=== PATIENT | male | born 1950 | race Caucasian/White ===

== ENCOUNTER 2019-05-07 07:00 | Inpatient (IN) | payer MEDICARE, OTHER ==
[~2019-05-07] VITALS: Ht 188 cm; Wt 109.2 kg
[~2019-05-07 07:00] MED LIST: UNKNOWN DIABETIC MED
[2019-05-07 08:49] LABS: INR 1.09 (0.9-1.15); Partial Thromboplastin Time 29.9 sec (23.64-32.05)
[2019-05-07 08:50] LABS: Albumin 3.4 g/dL (3.4-5.0); Calcium 8.8 mg/dL (8.5-10.1); Potassium 3.6 mmol/L (3.5-5.1)
[2019-05-07 08:55] LABS: BUN/Creatinine Ratio 10.1; Bilirubin, Total 0.7 mg/dL (0.2-1.0); Total Protein 8.7 g/dL (6.4-8.2)
[2019-05-07] MEDS ORDERED: SODIUM CHLORIDE 0.9% 1,000 ML IV ONE (09:40)
[2019-05-07] MEDS ORDERED: SODIUM CHLORIDE 0.9% 1,000 ML IVB ONE (09:40)
[2019-05-07] MEDS ORDERED: ALBUTEROL SULF 2.5 MG/0.5ML(0.5%) NEB SOLN NEB ONE (09:45)
[2019-05-07] MEDS ORDERED: IPRATROPIUM BROM 0.5 MG/2.5ML INH SOL NEB ONE (09:45)
[2019-05-07] MEDS ORDERED: methylPREDNISolone SOD SUCC 125 MG/2 ML VL IV ONE (09:45)
[2019-05-07 10:23] LABS: Magnesium 2.3 mg/dL (1.6-2.6)
[2019-05-07 13:26] LABS: Basophils # (auto) 0 10 ^3/uL (0-0.2); Basophils % (auto) 0.2 % (0.0-2.0); Eosinophils # (auto) 0 10 ^3/uL (0-0.8); Eosinophils % (auto) 0.1 % (0.0-7.0); Hematocrit 47.3 % (41.0-53.0); Hemoglobin 16.1 g/dL (13.5-17.5); Lymphocytes # (auto) 0.5 10 ^3/uL (0.4-5.4); Lymphocytes % (auto) 5.4 % (10.0-50.0); Mean Corpuscular Hemoglobin 32.3 pg (28.0-32.0); Mean Corpuscular Hgb Conc. 34.1 g/dL (32.0-36.0); Mean Corpuscular Volume 94.7 fL (80.0-100.0); Monocytes # (auto) 0.3 10 ^3/uL (0-1.3); Neutrophils # (auto) 8.1 10 ^3/uL (1.6-8.6); Neutrophils % (auto) 91.3 % (37.0-80.0); Platelet Count (auto) 162 10^3/uL (140-450); Red Cell Distribution Width 13.6 % (11.8-14.3); White Blood Cell 8.9 10^3/uL (4.4-10.8)
[2019-05-07] MEDS ORDERED: ACETAMINOPHEN 500 MG TAB PO PRN (14:30)
[2019-05-07] MEDS ORDERED: NITROGLYCERIN 0.4 MG SL TAB SL PRN (14:30)
[2019-05-07] MEDS ORDERED: MORPHINE SULF INJ 2 MG/ML SYRINGE 1ML IV PRN (14:30)
[2019-05-07] MEDS: SODIUM CHLORIDE 0.9% 1,000 ML IV SCH ×2 (14:54→15:58)
--- NOTE | 2019-05-07 15:03 | NUR ---
Telemetry admit from ER RADHA MORALES admitted to Telemetry unit. Patient oriented to Nathalia Shelton, primary RN, unit, room, bed, and unit policies regarding patient care and visiting hours. Patient now on continuous telemetry monitoring, tele box #8 and telemetry reading on arrival to unit is SR 80 bpm. Patient placed on bedside oxygen at 4L NC and weighed by bed scale and encouraged to call if they need anything. Bed locked in the lowest position. Bed rails up x2. Call light in reach.
[2019-05-07 15:06] VITALS: BP 153/54
--- NOTE | 2019-05-07 16:00 | NUR ---
RAPID FLU AND URINE OBTAINED AND SENT TO LAB.
[2019-05-07 17:00] VITALS: BP 124/75
--- NOTE | 2019-05-07 17:34 | NUR ---
JIG MILL OPERATOR NOTIFIED PIPER SIMONS NOTIFIED THAT PATIENT CURRENTLY HAS SUICIDAL THOUGHTS AND HISTORY OF SUICIDE ATTEMPTS. NEW ORDER RECEIVED FOR TELE PSYCH CONSULT TOMORROW. ORDER READ BACK AND VERIFIED. ENGINEERING TEST SPECIALIST AWARE AND WORKING ON OBTAINING A SITTER FOR SAFETY. PATIENT DENIES AN ACTIVE PLAN OR CURRENT ATTEMPTS OF HARMING SELF. PATIENT STATES, "I'VE HAD SUICIDAL THOUGHTS ALL OF MY LIFE. I AM MANIC DEPRESSIVE AND DO NOT TAKE MY MEDICATION. I DONT HAVE ANY PLANS TO HURT MYSELF."
[2019-05-07 17:58] LABS: Urine Bacteria FEW /hpf (None Seen); Urine Blood Negative /uL (Negative); Urine Mucus FEW (None Seen); Urine Specific Gravity 1.029 (1.001-1.035); Urine WBC 2 /hpf (0 - 3)
[2019-05-07] MEDS ORDERED: IOHEXOL 300 MG/ML 100ML BOTTLE IJ ONE (18:09)
--- NOTE | 2019-05-07 19:00 | NUR ---
CLOSING NOTE Patient is awake and alert. No S/S of distress/SOB or pain. Bed locked in the lowest position. Bed rails up x2. Call light in reach. Sitter for safety at the bedside. Endorsed care to english instructor RN.
--- NOTE | 2019-05-07 19:40 | NUR ---
Opening Shift Note Assumed care of patient, resting in bed with breaths even and unlabored. No S/S of distress/SOB or pain noted. Instructed on POC and to call for assist PRN. Sitter at the bedside. Bed is in lowest locked position with bed rails up x2 and call light is within reach of the patient.
--- NOTE | 2019-05-07 21:08 | NUR ---
Hospitalist paged: Paged hospitalist to report CT abdomen/pelvis findings. Waiting for call back.
--- NOTE | 2019-05-07 21:08 | NUR ---
Hospitalist benoit: Patient having persistent complaints of having a tooth ache that is now a 12/08 with no relief after receiving morphine. Paged hospitalist at this time to notify of patients pain. Addendum: 05/07/19 at 2115 by Laury Claudio RN RN Wrong patient.
--- NOTE | 2019-05-07 21:14 | NUR ---
Hospitalist called back: Hospitalist Aravind called back. New orders received. To place orders. Addendum: 05/07/19 at 2120 by Laury Claudio RN RN MD Yates ordered a surgical consult. Addendum: 05/07/19 at 2124 by Laury Claudio RN RN Updated regarding patients history and CT results
[2019-05-07] MEDS: IPRATROPIUM BROM 0.5 MG/2.5ML INH SOL NEB PRN (21:38)
[2019-05-07] MEDS: ALBUTEROL SULF 2.5 MG/0.5ML(0.5%) NEB SOLN NEB PRN (21:38)
[2019-05-07 22:00] VITALS: BP 102/51
[2019-05-07] MEDS: metroNIDAZOLE 500MG/100ML 100 ML IV SCH (22:29)
--- NOTE | 2019-05-07 22:41 | NUR ---
Patients pain resolved: Patient states they have 0 tooth ache pain. Addendum: 05/07/19 at 2242 by Laury Claudio RN RN wrong patient.
[2019-05-07] MEDS: ONDANSETRON HCL 4 MG/2 ML VIAL IV PRN (23:40)
[2019-05-07] MEDS: MORPHINE SULF INJ 2 MG/ML SYRINGE 1ML IV PRN (23:40)
--- NOTE | 2019-05-08 01:08 | NUR ---
Hospitalist paged: Paged hospitalist, patient having persistent cough and requesting cough medication. Waiting for call back.
--- NOTE | 2019-05-08 01:12 | NUR ---
Hospitalist called back: Hospitalist Aravind called back. Updated about patient persistent cough. New orders received. To place orders.
[2019-05-08] MEDS: guaiFENesin-DM 100/10mg/5ml SYR PO PRN ×2 (01:24→11:14)
[2019-05-08 01:35] VITALS: BP 113/68
[2019-05-08] MEDS: ALBUTEROL SULF 2.5 MG/0.5ML(0.5%) NEB SOLN NEB PRN ×2 (03:28→22:50)
[2019-05-08] MEDS: IPRATROPIUM BROM 0.5 MG/2.5ML INH SOL NEB PRN ×2 (03:28→22:50)
--- NOTE | 2019-05-08 04:25 | NUR ---
Called and set up tele psyche: Tele psyche levers lace machine operator in room. Called to place tele psyche for consult to be done.
--- NOTE | 2019-05-08 05:10 | NUR ---
Spoke with Psychiatrist: Psychiatrist stated that "Patient was asleep. Let the patient sleep and call back later when patient is awake." Will call back later when patient is awake.
[2019-05-08 05:17] VITALS: BP 104/57
[2019-05-08] MEDS: metroNIDAZOLE 500MG/100ML 100 ML IV SCH ×3 (05:32→22:00)
[2019-05-08 06:34] LABS: Basophils # (auto) 0 10 ^3/uL (0-0.2); Eosinophils # (auto) 0 10 ^3/uL (0-0.8); Hematocrit 40.9 % (41.0-53.0); Hemoglobin 14.3 g/dL (13.5-17.5); Lymphocytes # (auto) 0.8 10 ^3/uL (0.4-5.4); Lymphocytes % (auto) 7.6 % (10.0-50.0); Mean Corpuscular Hemoglobin 33.1 pg (28.0-32.0); Mean Corpuscular Hgb Conc. 34.9 g/dL (32.0-36.0); Mean Corpuscular Volume 94.9 fL (80.0-100.0); Monocytes # (auto) 1.3 10 ^3/uL (0-1.3); Monocytes % (auto) 12.2 % (0.0-12.0); Neutrophils # (auto) 8.7 10 ^3/uL (1.6-8.6); Neutrophils % (auto) 80.2 % (37.0-80.0); Platelet Count (auto) 169 10^3/uL (140-450); Red Blood Cells 4.31 10^6/uL (4.5-5.90); Red Cell Distribution Width 13.7 % (11.8-14.3); White Blood Cell 10.8 10^3/uL (4.4-10.8)
[2019-05-08 06:50] LABS: Potassium 4.2 mmol/L (3.5-5.1)
--- NOTE | 2019-05-08 06:55 | NUR ---
Respiratory note: PRN MED NEB TX NOT INDICATED AT THIS TIME. HR 67, RR 16, SPO2 97% ON RA, BS CLEAR/DIMINISHED. NO SIGNS OR SYMPTOMS OF RESPIRATORY DISTRESS NOTED AT THIS TIME. PT INFORMED TO HIT CALL BUTTON IF FEELING SOB OR WHEEZING.SITTER AT BEDSIDE.
[2019-05-08 07:09] LABS: Albumin 2.8 g/dL (3.4-5.0); BUN/Creatinine Ratio 20.9; Bilirubin, Total 0.3 mg/dL (0.2-1.0); Calcium 8.4 mg/dL (8.5-10.1)
--- NOTE | 2019-05-08 07:18 | NUR ---
Opening Shift Note Assumed care of patient, awake and alert, sitter at bedside. No S/S of distress/SOB or pain. Instructed on POC and to call for assist PRN, will continue to monitor for changes Q1hr and PRN.
[2019-05-08] MEDS: FAMOTIDINE 20 MG TAB PO SCH (08:32)
[2019-05-08] MEDS: MORPHINE SULF INJ 2 MG/ML SYRINGE 1ML IV PRN ×2 (08:32→22:01)
[2019-05-08 09:00] VITALS: BP 109/68
[2019-05-08] MEDS ORDERED: levoFLOXacin 500MG 100 ML IV SCH (10:00)
--- NOTE | 2019-05-08 11:04 | NUR ---
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 Bedside nurse took photograph of patient's wound upon admission for reference. Patient is 68 years old male admitted for Diarrhea. Patient with history of PE, Crohn's disease, DM,colostomy placement and subsequent reversal. Patient is resting in bed in Rm. 238. Patient is awake, alert and oriented. Patient is in no stated pain at this time. Nurse aide at bedside reported that patient is ambulatory to bathroom and able to turn and reposition self. His Jabari score is 16. Patient's Rt foot noted with missing Rt great toe and Rt 3rd toe. There's 0.5x0.6cm intact scabbed wound to medial Rt 2nd toe,td wound is yellow hyperkeratotic ring, no drainage or odor noted,left open to air. patient's L foot noted with missing L great toe and L 2nd toe. There's 8x0.3x0.8cm fissure/open calloused wound to L medial foot that bifurcate at plantar aspect of L foot. Wound is red with yellow hyperkeratotic skin. Scant serous drainage noted with mild odor noted. Patient reported that he has had the L foot wound for "two and half years". he added that a year ago he's seeing wound care at [facility] and it stopped due to insurance. Cleansed patient's Lt medial foot wound with wound cleanser, patted dry with gauze, applied Thera honey gel to open wound bed area, covered with layer of 4x4's gauze, wrapped with Kerlix and secured with tape. No pressure injury noted, however mild erythema, skin irritation noted on patient's sacral,buttocks and perineum due to diarrhea; applied Barrier cream as preventative. Patient educated in skin/wound care, encourage to apply the barrier cream to sacral, buttock perineum after using the bathroom. Patient tolerated well, and verbalized understanding. Nurse aide at bedside. RECOMMENDATION: Nursing to continue with BID/PRN cleaning and application of Barrier cream to sacral,buttocks and perineum as preventative; Daily/PRN Dressing change to Lt medial foot wound per MD order, Dietary consult for wound,Podiatry consult, continue monitoring by wound care while patient is hospitalized. Addendum: 05/08/19 at 1614 by Lorna Hodge RN Amended: Links added.
[2019-05-08] MEDS: SODIUM CHLORIDE 0.9% 1,000 ML IV SCH ×2 (11:14→20:54)
[2019-05-08 13:00] VITALS: BP 126/56
--- NOTE | 2019-05-08 13:11 | NUR ---
Nutrition Assessment Notes Please refer to link for full assessment notes. Est energy needs: 9928-8895 kcals (23-25 kcal/kgBW) Est protein needs: 109-149 gms/day (1.1-1.5 gm/kgBW) d/t wounds Will continue to monitor and reassess prn. Addendum: 05/08/19 at [address] Amended: Links added.
[2019-05-08] MEDS ORDERED: GASTROGRAFIN 120 ML SOL ONE (13:35)
[2019-05-08 17:00] VITALS: BP 134/80
--- NOTE | 2019-05-08 19:30 | NUR ---
Opening Shift Note Assumed care of patient, awake and alert Oriented x4. No S/S of distress/SOB noted. Instructed on POC and to call for assist PRN. Sitter is at the bedside. Bed is in lowest locked position with bed rails up x2 and call light is within reach of the patient.
--- NOTE | 2019-05-08 19:45 | NUR ---
Patient agitated, Open shift note.: PATIENT STANDING AT THE EDGE OF THE BED AGITATED STATING " I have to pee! I have to strain to get the urine all out!" EDUCATED THE PATIENT NOT TO STRAIN AND THAT PATIENT HAS A ARNETT CATHETER THAT IS DRAINING BLADDER AT ALL TIMES. PATIENT YELLED "Dont tell me what to do! Im not dumb! Im old enough to be your grandpa! Get out of here! I know what Im doing!" EDUCATED THAT PATIENT ABOUT ARNETT CATHETER AGAIN AND NOT TO STRAIN IT COULD HARM THE PATIENT. PATIENT CONTINUED TO BE AGITATED. ARNETT IS PATENT AND DRAINING TO GRAVITY. PATIENT VERBALIZED NO PAIN. BED IS IN LOWEST LOCKED POSITION WITH BED ALARM ARMED. CALL LIGHT IS WITHIN REACH. Addendum: 05/08/19 at 2120 by Laury Claudio RN RN WRONG PATIENT.
[2019-05-08 22:00] VITALS: BP 123/75
--- NOTE | 2019-05-08 22:00 | NUR ---
Tele psyche not available at this time: Tele psyche in use for another patient at this time. Will wait for availability to set up telemetry psyche for patient. Addendum: 05/09/19 at 0124 by Laury Claudio RN RN error: meant tele psyche
[2019-05-08] MEDS: ONDANSETRON HCL 4 MG/2 ML VIAL IV PRN (22:01)
--- NOTE | 2019-05-09 | NUR ---
Patient asleep: Patient asleep at this time. Will wait in AM to set up tele psyche for patient when patient is awake.
[2019-05-09] MEDS: MORPHINE SULF INJ 2 MG/ML SYRINGE 1ML IV PRN ×3 (02:19→11:19)
--- NOTE | 2019-05-09 05:00 | NUR ---
Spoke with Tele Med: Spoke with the Tele med associate who stated that patients consult had been completed yesterday. Gave associate [facility] fax number to send report and place in files.
--- NOTE | 2019-05-09 05:08 | NUR ---
Called Tele med associate regarding report: Report sent from tele med appeared to be blank. Called in to schedule a new tele psyche consult.
--- NOTE | 2019-05-09 05:26 | NUR ---
Haley Hospitalist: Patients blood pressure was elevated. Haley hospitalist at this time. Waiting for call back. Addendum: 05/09/19 at 0531 by Laury Claudio RN RN WRONG PATIENT
[2019-05-09 05:33] VITALS: BP 121/77
[2019-05-09] MEDS: metroNIDAZOLE 500MG/100ML 100 ML IV SCH (05:33)
[2019-05-09] MEDS: SODIUM CHLORIDE 0.9% 1,000 ML IV SCH ×2 (05:34→15:00)
--- NOTE | 2019-05-09 06:00 | NUR ---
Complaints of low blood sugar: Patient insisted blood sugar be checked feeling like his blood sugar was dropping. Checked patients blood sugar and it was normal at 78, made patient aware that blood sugar was normal but patient became agitated stating, "I haven't had anything to eat and my blood sugar is going to drop! It drops fast!" Educated the patient that blood sugar is in normal value right now and we will continue to monitor for symptoms of low blood sugar. Will make MD and Day shift RN aware of patients concerns.
[2019-05-09] MEDS: ONDANSETRON HCL 4 MG/2 ML VIAL IV PRN (06:29)
[2019-05-09] MEDS: guaiFENesin-DM 100/10mg/5ml SYR PO PRN ×2 (06:34→22:34)
--- NOTE | 2019-05-09 08:00 | NUR ---
Patient states that his BS "is getting lower" patient denies s/s of hypoglycemia but states he is NPO and "they're starving me and I know my sugar drops quick". BS is 72. Patient requesting a sugar pack which he put under his tongue. Patient states he's feeling better. Cont to monitor.
[2019-05-09 08:09] VITALS: BP 137/84
--- NOTE | 2019-05-09 10:00 | NUR ---
GI at bedside Johanny at bedside, aware of patient's status. Patient states he's passing gas. New orders received for clear liquid diet at this time. MD states possible bowel prep tomorrow or the next day for colonoscopy if patient tolerating well. Patient provided with apple juice and jello patient tolerating well denies n/v. Will continue to monitor.
--- NOTE | 2019-05-09 10:05 | NUR ---
Hospitalist at bedside MD Beltre at bedside, aware of patient's status. states she spoke to Dr Orlando. New orders received to dc abx. Will cont care
[2019-05-09] MEDS: FAMOTIDINE 20 MG TAB PO SCH (10:30)
--- NOTE | 2019-05-09 10:40 | NUR ---
assessment Patient is a 68 year old male who is alert and oriented. Prior to admission patient lived home with friends and functioned with assistance. Per patient he has a cane for home use. I informed patient of his consult for suicide attempt with 51/50 hold last year. Voicing daily suicidal ideations without plan. Patient informed me he has been manic/depressive for 30 years. Patient informed me when he is in his depressive state he does think about suicide. Patient informed me he does not want to live anymore. Patient informed me he has nothing to live for. Patient stated that his five and a half years ago in [facility] and he wishes he killed the doctors that were caring for her. Patient informed me he bought an eight ball of crack last year and smoked all of it and took 20 Norcos trying to kill himself. Patient was put on a 51/50 at that time. Patient has no plan at this time, but does need a tele psych with 51/50 and psych placement. I spent some time with patient talking to him about the positives in his life, the warning signs he may see prior to suicide attempt, some coping strategies, and calling for help. Patient was receptive to information. Notified RN that patient needs tele psych and 51/50. Addendum: 05/09/19 at 1052 by Dea Puentes Amended: Links added.
[2019-05-09 10:42] LABS: Potassium 3.9 mmol/L (3.5-5.1)
[2019-05-09 10:44] LABS: BUN/Creatinine Ratio 20.5
--- NOTE | 2019-05-09 10:46 | NUR ---
Called tele med and spoke to rep requesting H&P labs and VS per Will. Paperwork faxed as requested.
[2019-05-09] MEDS: IPRATROPIUM BROM 0.5 MG/2.5ML INH SOL NEB PRN ×2 (10:59→20:11)
[2019-05-09] MEDS: ALBUTEROL SULF 2.5 MG/0.5ML(0.5%) NEB SOLN NEB PRN ×2 (10:59→20:11)
--- NOTE | 2019-05-09 11:49 | NUR ---
Respiratory note: PT RECEIVED PRN BREATHING TX DUE TO FEELING SLIGHTLY SHORT OF BREATH. PT IS ON ROOM AIR, VITALS ARE STABLE. PT IS AWAKE AND ALERT. NO ADVERSE REACTIONS NOTED DURING TX. RN IS AWARE. WILL CONTINUE TO MONITOR PT.
[2019-05-09 12:10] VITALS: BP 123/74
--- NOTE | 2019-05-09 13:09 | NUR ---
Midline Placement: Patient educated on need for midline placement. All risks and benefits explained and all questions and concerns addresses prior to procedure. 18g/10cm midline inserted via right brachial vein using Ultrasound. Sterile technique utilized. Blood return obtained from lumen and flushed easily with NS using proper technique. Midline secured with saline lock; biodisc and occlusive dressing applied. Primary RN notified. Midline lot #[id number]
[2019-05-09 16:24] VITALS: BP 135/79
--- NOTE | 2019-05-09 17:30 | NUR ---
Dressing changed dressing to left foot changed as ordered. Patient tolerated well. Patient assisted up to the bathroom by DIANA Ferris and complete linen changed performed. Patient tolerated well with no distress sob or pain. Cont care
[2019-05-09] MEDS: HYDROcodone-ACET 5/325MG TAB PO PRN (18:34)
--- NOTE | 2019-05-09 19:05 | NUR ---
Patient care endorsed endorsed care to Zee hernandez. Patient sitting up at edge of bed no distress or sob noted. Call light within reach. Sitter at bedside.
--- NOTE | 2019-05-09 19:05 | NUR ---
Received report from the Day Shift TITUS You. Initial assessment done. Pt. in bed resting, alert, awake, oriented x 4, in 2-3L/NC continuous, no s/s of sob, lung sounds clear @ the upper lobes and diminished @ the lower lobes, breathing symmetrical and unlabored. Pt. on Tele # 8, SR with BBB @ the monitor @ 60's per minute. Pt. denies chest pain and denies any pain, pt. resting with sitter @ the bedside. Pt. can ambulate with minimal assist. IV access @ the LC Midline G # 18 with 1 lumen connected to the IVF of NS @ 70 mls./hr. continuous. Pt. surgery Dr. venegas will come and see him tonight. Pt.'s abdomen with bumps and with history of abdominal surgery in the past. Keep pt. safe, warm and comfortable in bed.
--- NOTE | 2019-05-09 20:00 | NUR ---
Complete assessment done. Dr. Bryan came and seen pt. Dr. Bryan, Surgery MD. talked and communicated to the pt. and pt. able to verbalize his condition and his needs, Dr. Bryan aware of pt.'s status. Dr. Bryan gave orders of Putting an abdominal binder to the pt.'s abdomen, to advance his diet and will be according to the pt.'s needs and pt. will need to talk to the Dietitian in the Day so he could give suggestion of what type of food he can eat that's safe for his condition especially he has one (1) kidney left, had kidney surgery in the past and that he needs to talk to the Dietitian for the diet that;s safe for his kidney and to consider that he is diabetic also. Will follow-up this in the Day time for Dietitian to come up and talk to him. Keep pt. informed and provided explanation for his present medical and nursing care.
--- NOTE | 2019-05-09 20:15 | NUR ---
Pt. given abdominal binder and placed it properly around his abdomen. Pt. cooperated and snug it round his abdomen properly with the help of his RN. Zee. Cleansed his bed and fixed pt.'s gown and bed linens and placed pt. safely and comfortably in bed.
--- NOTE | 2019-05-09 20:30 | NUR ---
Pt. given feels hungry, given snacks such as Quemado sandwich, whole milk and jello as he requested. Pt. resting and eating his snacks watching TV. Sitter @ the bedside.
[2019-05-09 21:55] VITALS: BP 131/84
--- NOTE | 2019-05-09 22:34 | NUR ---
Pt. given Robitussin -DM Liquid-Guaifenesin DM for cough 10 mls. syrup PO. @ this time due to coughing. Pt. feels relieved of the cough reliever med.
[2019-05-10] VITALS (7 sets, daily range): BP systolic 119–157; BP diastolic 75–91
[2019-05-10] MEDS: IPRATROPIUM BROM 0.5 MG/2.5ML INH SOL NEB PRN ×3 (02:46→20:43)
[2019-05-10] MEDS: ALBUTEROL SULF 2.5 MG/0.5ML(0.5%) NEB SOLN NEB PRN ×3 (02:46→20:43)
[2019-05-10] MEDS: MORPHINE SULF INJ 2 MG/ML SYRINGE 1ML IV PRN ×2 (04:03→21:09)
[2019-05-10] MEDS: SODIUM CHLORIDE 0.9% 1,000 ML IV SCH ×2 (06:27→12:30)
--- NOTE | 2019-05-10 07:49 | NUR ---
Patient requesting BS check he states he can feel sugar dropping at this time 64. Patient provided orange juice and breakfast tray. Patient states feeling good after eating cont care
[2019-05-10] MEDS: guaiFENesin-DM 100/10mg/5ml SYR PO PRN ×2 (08:58→19:01)
[2019-05-10] MEDS: FAMOTIDINE 20 MG TAB PO SCH (08:58)
--- NOTE | 2019-05-10 09:00 | NUR ---
Wound dressing changed Cleanse L medial foot open/fissured calloused wound with wound cleanser,pat dry with gauze, apply Thera honey gel, cover with layers of 4x4's gauze, wrap with Kerlix and secure with tape as ordered. Patient medicated for pain and tolerated well. Will continue to monitor. Z guard applied to sacrum preventative.
[2019-05-10] MEDS: HYDROcodone-ACET 5/325MG TAB PO PRN (09:01)
[2019-05-10] MEDS ORDERED: GOLYTELY 4L KIT PO ONE (11:00)
--- NOTE | 2019-05-10 11:10 | NUR ---
Respiratory note: ROUTINE PRN CHECK. HR 63, RR 16, POX 96% ON RA, BS CLEAR/DIMINISHED. NO SOB OR DISTRESS NOTED. PT WAS NOTIFY TO HAVE RT PAGE FOR MN TX.
--- NOTE | 2019-05-10 12:15 | NUR ---
Hospitalist at bedside MD Beltre at bedside, new orders received for Podiatry consult regarding foot wound. Awaiting colonoscopy tomorrow. Cont care
--- NOTE | 2019-05-10 16:07 | NUR ---
assessment Per consult patient has no PCP. Per Dea Mackey patient has DR Brandon for PCP Addendum: 05/10/19 at 1609 by Dea Puentes Amended: Links added.
--- NOTE | 2019-05-10 16:26 | NUR ---
PT REPORTS THAT HE WALKS FINE AND DOES NOT NEED P.T.
--- NOTE | 2019-05-10 19:02 | NUR ---
Patient care endorsed endorsed care to Zee hernandez. Patient resting comfortably in bed in no acute distress or sob. Patient requested cough syrup and patient medicated as ordered. Sitter at bedside and call light within reach
--- NOTE | 2019-05-10 19:03 | NUR ---
Received report from the Day Shift TITUS King. Initial assessment done. Pt. in bed resting, alert, awake, oriented x 4, in Room Air, no s/s of sob/dyspnea. Pt. is on Tele # 8 , SB @ 550's per minute @ the monitor. Pt. denies chest pain. No s/s of pain ro discomfort @ this time. Pt. has good appetite, eating @ the bedside and watching TV. Pt. for Colonoscopy tomorrow with GI consult order. Pt. to be NPO post MN and Pre-op checklist needed to be filled up.
--- NOTE | 2019-05-10 20:00 | NUR ---
Assessment done and completed. keep pt. informed about his present care. Provided assistance @ the bedside and maintained pt. safety with sitter @ the bedside.
--- NOTE | 2019-05-10 21:09 | NUR ---
Pt. given Morphine Sulfate 1 mg. IV for severe pain aabout 8/10 scale @ the abdomen, both legs and Left foot (wound) with dsg. changed early today and is clean, dry and intact. Pt. felt relieved with the help of the RN. Pt. encouraged to rest. Pt. still on clear liquid due abdominal pain. Pt. given orange juices and watching TV while lying in bed. Sitter @ the bedside.
--- NOTE | 2019-05-10 21:39 | NUR ---
Pt. calm and comfortable @ this time with mild facial grimacing about 2/10 scale. Pt. watching TV comfortably.
--- NOTE | 2019-05-11 | NUR ---
Pt. on NPO post MN. Pt. aware of the Colonoscopy procedure tomorrow, compliant or cooperated with his care. Pt. following commands, he followed the NPO instructions and the sitter helped RN reenforced NPO. No food and liquid @ the bedside. Pt. resting, watching TV, dozing and sleeping with sitter watching the pt. safety continuously.
--- NOTE | 2019-05-11 02:00 | NUR ---
Pt. is sleeping undisturbed @ this time, kept NPO. Pt. SB @ 50's per minute.
--- NOTE | 2019-05-11 04:00 | NUR ---
Provided pt. assistance with ADL's. Kept pt. on NPO. Keep pt. warm and comfortable. SB @ the 50's @ the monitor.
[2019-05-11] MEDS: MORPHINE SULF INJ 2 MG/ML SYRINGE 1ML IV PRN (04:46)
--- NOTE | 2019-05-11 04:46 | NUR ---
Pt. given Morphine Sulfate 1 mg. IV for abdominal pain, legs and Left foot wound about 9/10 scale. pt. felt relieved with the help and returned to sleep. Kept pt. on NPO. Pt. following instructions.
[2019-05-11 05:00] VITALS: BP 153/82
--- NOTE | 2019-05-11 05:00 | NUR ---
Pre-op Checklist started @ this time when pt. is awake and not watching TV. Pt. kept on NPO. SB @ the 50's @ the monitor.
--- NOTE | 2019-05-11 05:57 | NUR ---
Pt. calm and resting quietly with mild facial grimacing about 2/10 scale pain. Pt. still on NPO. Pt. compliant with care. Sitter @ the bedside.
[2019-05-11] MEDS: SODIUM CHLORIDE 0.9% 1,000 ML IV SCH (06:15)
--- NOTE | 2019-05-11 07:10 | NUR ---
Gave report to the next Day shift RN. Pt. resting, kept on NPO. Pt. for Colonoscopy with consent signed and with Pre-op checklist completed or done and placed @ the chart.
[2019-05-11 09:00] VITALS: BP 148/85
[2019-05-11] MEDS ORDERED: NALOXONE HCL 0.4 MG/ML VIAL ONE (09:20)
[2019-05-11] MEDS ORDERED: SODIUM CHLORIDE LOCK 10 ML ONE (09:20)
[2019-05-11] MEDS ORDERED: FLUMAZENIL 0.1 MG/ML INJ 10ML MDV IV ONE (09:20)
[2019-05-11] MEDS ORDERED: diphenhdrAMINE HCL 50 MG/1 ML VL ONE (09:21)
--- NOTE | 2019-05-11 09:35 | NUR ---
Patient taken down to preop care endorsed to Maricel hernandez. Patient transported in no distress or sob. greenhouse technician Connie notified. Cont care on arrival.
[2019-05-11] MEDS: MIDAZOLAM HCL 5 MG/ML-1ML VIAL ONE ×2 (09:53→10:00)
[2019-05-11] MEDS: fentaNYL CITRATE 100 MCG/2 ML VL ONE ×2 (09:53→10:00)
[2019-05-11] MEDS: FAMOTIDINE 20 MG TAB PO SCH (10:00)
[2019-05-11 11:07] LABS: Basophils # (auto) 0 10 ^3/uL (0-0.2); Basophils % (auto) 0.4 % (0.0-2.0); Eosinophils # (auto) 0.2 10 ^3/uL (0-0.8); Eosinophils % (auto) 2.7 % (0.0-7.0); Hematocrit 42.6 % (41.0-53.0); Lymphocytes # (auto) 1.9 10 ^3/uL (0.4-5.4); Lymphocytes % (auto) 25.4 % (10.0-50.0); Mean Corpuscular Hemoglobin 32.9 pg (28.0-32.0); Mean Corpuscular Hgb Conc. 35.2 g/dL (32.0-36.0); Mean Corpuscular Volume 93.7 fL (80.0-100.0); Monocytes # (auto) 0.9 10 ^3/uL (0-1.3); Monocytes % (auto) 12.2 % (0.0-12.0); Neutrophils # (auto) 4.5 10 ^3/uL (1.6-8.6); Neutrophils % (auto) 59.3 % (37.0-80.0); Nucleated Red Blood Cells % 0.1 %; Platelet Count (auto) 169 10^3/uL (140-450); Red Blood Cells 4.55 10^6/uL (4.5-5.90); Red Cell Distribution Width 13.6 % (11.8-14.3); White Blood Cell 7.7 10^3/uL (4.4-10.8)
[2019-05-11 11:28] LABS: BUN/Creatinine Ratio 10.4; Calcium 8.4 mg/dL (8.5-10.1); Potassium 3.7 mmol/L (3.5-5.1)
--- NOTE | 2019-05-11 12:33 | NUR ---
DR DENNY AT BEDSIDE DR DENNY AT BESIDE DISCUSSING POC WITH PT, PT STATES " I WAKE UP EVERY MORNING THINKING I SHOULD NOT BE ALIVE", ASKED PATIENT IF HE HAS A CURRENT PLAN ON HOW TO END HIS LIFE, PT STATES " I DONT HAVE A PLAN AND I AM NOT GONNA GO HOME AND KILL MYSELF", PRIMARY RN JUDY LINTON
--- NOTE | 2019-05-11 12:35 | NUR ---
New orders received for tele psych from Dr Beltre to follow up after patient states he wakes up and wish he was not alive and continue to say he's depressed. Tele psych consult placed as ordered. Patient denies any thoughts of hurting self or others at this time. Sitter at bedside
--- NOTE | 2019-05-11 12:49 | NUR ---
Tele monitor returned to ICU. [facility] notified
[2019-05-11 13:00] VITALS: BP 145/96
--- NOTE | 2019-05-11 13:58 | NUR ---
Discharge instructions given as ordered. Encourage to follow up with PMD and [facility] [employer] as instructed. All questions and concerns addressed. Patient verbalized understanding. Medication reconciliation form completed and copy given to patient. Prescription given to patient and educated on use s/e s/s he verbalized understanding. IV removed with catheter intact, pressure dressing applied. Incision site s/p angiogram asymptomatic. Telemetry unit returned to ICU and tech Connie notified. Patient taken to vehicle via wheelchair with all personal belongings, accompanied by staff. No distress noted at time of departure. Addendum: 05/11/19 at 1434 by Christine Juarez RN DISREGARD NOTE!!! WRONG PATIENT
--- NOTE | 2019-05-11 14:05 | NUR ---
Faxed home health order to [facility]-spoke with Veronica at [facility] ([phone])-she said they will work on the home health order.
[2019-05-11] MEDS: ALBUTEROL SULF 2.5 MG/0.5ML(0.5%) NEB SOLN NEB PRN ×2 (14:08→18:20)
[2019-05-11] MEDS: IPRATROPIUM BROM 0.5 MG/2.5ML INH SOL NEB PRN ×2 (14:08→18:20)
--- NOTE | 2019-05-11 16:22 | NUR ---
TELE PSYCH IN PROGRESS NOW
[2019-05-11 17:22] VITALS: BP 152/83
--- NOTE | 2019-05-11 17:33 | NUR ---
Received call from tele psych doctor Dr Moraes called and said he spoke to patient and patient does not need to be in inpatient psych facility or 5150 hold needed. Per Psychiatrist states patient "is just unhappy with life and can follow up as outpatient therapy". Psychiatrist recommends Celexa 10mg HS and states he's working on his noted and will put in on [email or web address]. Will cont care
--- NOTE | 2019-05-11 19:06 | NUR ---
Receive report from Christine, Day Shift assigned RN.
--- NOTE | 2019-05-11 19:07 | NUR ---
Patient care endorsed endorsed care to Zee hernandez. Patient laying in bed no acute distress or sob noted. Call light within reach. Sitter at bedside
--- NOTE | 2019-05-11 19:08 | NUR ---
Received report from the DAY shift RN. Initial assessment done.
--- NOTE | 2019-05-11 20:00 | NUR ---
Assessment done and completed. Pt. resting, dozing in bed, able to turn self, with sitter @ the bedside. Pt. in Room Air, no s/s of sob and no s/s of chest pain. Pt. Telemetry discontinued as pt. downgraded for discharged home tomorrow.
[2019-05-11] MEDS: HYDROcodone-ACET 5/325MG TAB PO PRN (20:31)
--- NOTE | 2019-05-11 20:31 | NUR ---
Pt. verbalized abdominal pain, leg pain and left foot pain about 6/10 scale, hurting, sharp and throbbing. Pt. given 1 tab. of Mouthcard 5/325 mg. po. @ this time. Pt. encouraged to sleep. Keep pt. environment tranquil and room dim-lighted. Sitter @ the bedside.
--- NOTE | 2019-05-11 21:31 | NUR ---
Pt. calm and resting @ this time, mild facial grimacing of 2/10 scale. Pt. able to turn self, reenforced blanket and covered pt. to keep warm and with sitter @ the bedside continuously watching pt. safety.
[2019-05-11 23:37] VITALS: BP 121/74
--- NOTE | 2019-05-12 | NUR ---
Pt. resting and sleeping undisturbed. Maintained pt. safety and keep warm. Rounding/Checked pt.
[2019-05-12] MEDS: HYDROcodone-ACET 5/325MG TAB PO PRN (02:26)
--- NOTE | 2019-05-12 02:26 | NUR ---
Pt. given [place] 1 tab. 5/325 mg. po. @ this time for abdominal, leg and left foot pain. Pt. given snacks as pt. requested.
[2019-05-12 02:58] VITALS: BP 136/80
--- NOTE | 2019-05-12 04:00 | NUR ---
Pt .sleeping with sitter @ the bedside. Pt. is a Medical -Surgical. None tele, to be discharge home tomorrow.
[2019-05-12 04:49] VITALS: BP 147/72
--- NOTE | 2019-05-12 07:20 | NUR ---
Gave report to the next Day Shift RN. Turk. Pt. resting and sleeping.
[2019-05-12 08:44] VITALS: BP 126/69
--- NOTE | 2019-05-12 09:02 | NUR ---
I called [facility] [phone] and was told that [facility] will follow patient starting on Wednesday05/15/19.
--- NOTE | 2019-05-12 10:30 | NUR ---
PODIATRY MD IS AT BEDSIDE CONSULTING WITH PATIENT. RECOMMENDATION TO F/U OUTPATIENT AND PATIENT AGREES WITH THE PLAN. MD CHANGED THE DRESSING.
--- NOTE | 2019-05-12 10:46 | NUR ---
DR GREEN AT BEDSIDE, DISCUSSED WITH PATIENT PLANS TO DISCHARGE, TO FOLLOW UP OUTPATIENT WITH PSYCHIATRY AND PODIATRY AND THE PATIENT VERBALIZED UNDERSTANDING.
[2019-05-12] MEDS: FAMOTIDINE 20 MG TAB PO SCH (10:51)
[2019-05-12] MEDS ORDERED: CITA10TA59 PO (12:57)
[2019-05-12 13:00] VITALS: BP 137/85
--- NOTE | 2019-05-12 14:05 | NUR ---
ASSESSED PT FOR MED NEB PRN TX, PT IN NO DISTRESS ON RA WITH SPO2 95%, HR 61, RR 16. NO INDICATION FOR PRN MED NEB AT THIS TIME.
[2019-05-12 14:19] VITALS: BP 126/69
[2019-05-12 14:30] VITALS: BP 126/69
--- NOTE | 2019-05-12 17:45 | NUR ---
PATIENT D/C TO HOME VIA [facility] BROUGHT DOWN TO ER BY WHEELCHAIR BY BRANDON CAI. MIDLINE REMOVED, CATHETER INTACT WITH NO REDNESS, SWELLING OR EXCESS BLEEDING-DRY DRG PLACED. PATIENT WAS EDUCATED ON HIS NEW MEDICATION, HIS FOLLOW UP APPOINTMENTS, DIET AND ACTIVITY. PATIENT VERBALIZED UNDERSTANDING.
== END 2019-05-12 17:45 | disposition home or self-care (01) | DRG 391 ==
LOC: ER 07:00 → EDBD 07:00 → TELE 07:01 → TELE-EAST 15:01 → EAST 05-11 23:46
PROVIDERS: ADMIT Nurse Practitioner Acute Care; ATTEND Internal Medicine
PROC: 0DBL8ZX Excision of Transverse Colon, Via Natural or Artificial Opening Endoscopic, Diagnostic (ICD-10-PCS; 2019-05-11)
PROC: 0DBN8ZX Excision of Sigmoid Colon, Via Natural or Artificial Opening Endoscopic, Diagnostic (ICD-10-PCS; 2019-05-11)
PROC: 0DBM8ZX Excision of Descending Colon, Via Natural or Artificial Opening Endoscopic, Diagnostic (ICD-10-PCS; principal; 2019-05-11 09:51)
DX: R19.7 Diarrhea, unspecified (principal); N17.0 Acute kidney failure with tubular necrosis; K42.0 Umbilical hernia with obstruction, without gangrene; K50.90 Crohn's disease, unspecified, without complications; J45.41 Moderate persistent asthma with (acute) exacerbation; B34.9 Viral infection, unspecified; L97.529 Non-pressure chronic ulcer of other part of left foot with unspecified severity; E11.22 Type 2 diabetes mellitus with diabetic chronic kidney disease; E11.21 Type 2 diabetes mellitus with diabetic nephropathy; N18.3 Chronic kidney disease, stage 3 (moderate); E66.9 Obesity, unspecified; E11.621 Type 2 diabetes mellitus with foot ulcer; F32.9 Major depressive disorder, single episode, unspecified; I12.9 Hypertensive chronic kidney disease with stage 1 through stage 4 chronic kidney disease, or unspecified chronic kidney disease; J44.9 Chronic obstructive pulmonary disease, unspecified; F41.9 Anxiety disorder, unspecified; K63.5 Polyp of colon; Z59.0 Homelessness; Z85.528 Personal history of other malignant neoplasm of kidney; Z90.5 Acquired absence of kidney; Z93.3 Colostomy status; R06.02 Shortness of breath
CPT/HCPCS: 36415; 45380; 71045; 74177; 74250; 80048; 80053; 81001; 82962; 83036; 83605; 83735; 84443; 84484; 85025; 85610; 85730; 87045; 87427; 87493; 87804; 93005; 94640; 96361; 96365; 96375; G0378; J1956; J2250; J2405; J3490

== ENCOUNTER 2019-06-20 15:14 | Inpatient (IN) | payer MEDICARE ==
[~2019-06-20] VITALS: Ht 188 cm; Wt 110.0 kg
[~2019-06-20 15:14] MED LIST changes: +CITA10TA59 PO; -UNKNOWN DIABETIC MED
[2019-06-20] MEDS ORDERED: AZITHROMYCIN 500MG/ 250ML 250 ML IV ONE (15:30)
[2019-06-20] MEDS ORDERED: ASCORBIC ACID 500 MG TAB PO ONE (15:30)
[2019-06-20] MEDS ORDERED: FUROSEMIDE 20 MG/2 ML VIAL IV ONE (15:30)
[2019-06-20] MEDS ORDERED: ZINC SULFATE 220mg CAP or TAB PO ONE (15:30)
[2019-06-20] MEDS ORDERED: cefTRIAXone 1GM/50ML D5W 50 ML IV ONE (15:30)
[2019-06-20 15:48] LABS: Basophils # (auto) 0.1 10 ^3/uL (0-0.2); Basophils % (auto) 0.5 % (0.0-2.0); Eosinophils # (auto) 0.4 10 ^3/uL (0-0.8); Eosinophils % (auto) 3.9 % (0.0-7.0); Hematocrit 49.9 % (41.0-53.0); Hemoglobin 16.8 g/dL (13.5-17.5); Lymphocytes # (auto) 2.5 10 ^3/uL (0.4-5.4); Lymphocytes % (auto) 23.3 % (10.0-50.0); Mean Corpuscular Hgb Conc. 33.6 g/dL (32.0-36.0); Mean Corpuscular Volume 95.3 fL (80.0-100.0); Monocytes # (auto) 0.8 10 ^3/uL (0-1.3); Monocytes % (auto) 7.9 % (0.0-12.0); Neutrophils # (auto) 6.9 10 ^3/uL (1.6-8.6); Neutrophils % (auto) 64.4 % (37.0-80.0); Platelet Count (auto) 208 10^3/uL (140-450); Red Blood Cells 5.24 10^6/uL (4.5-5.90); White Blood Cell 10.7 10^3/uL (4.4-10.8)
[2019-06-20 16:08] LABS: Albumin 2.9 g/dL (3.4-5.0); Anion Gap 6 (5-15); Blood Urea Nitrogen 20 mg/dL (7-18); CRP High Sensitivity 0.72 mg/dL (< 0.3); Calcium 8.4 mg/dL (8.5-10.1); Carbon Dioxide 24 mmol/L (21-32); Chloride 108 mmol/L (98-107); Glucose 203 mg/dL (74-106); Magnesium 2.5 mg/dL (1.6-2.6); Potassium 4.4 mmol/L (3.5-5.1); Sodium 138 mmol/L (136-145)
[2019-06-20 16:14] LABS: Alanine Aminotransferase 18 U/L (16-61); Alkaline Phosphatase 160 U/L (45-117); Aspartate Aminotransferase 11 U/L (15-37); BUN/Creatinine Ratio 15.4; Bilirubin, Total 0.3 mg/dL (0.2-1.0); GFR African American 70 mL/min; GFR Non-African American 58 mL/min; Lactate Dehydrogenase 164 U/L (87-241); Total Protein 7.4 g/dL (6.4-8.2)
[2019-06-20] MEDS ORDERED: ACETAMINOPHEN 500 MG TAB PO PRN (17:45)
[2019-06-20] MEDS ORDERED: MORPHINE SULF INJ 2 MG/ML SYRINGE 1ML IV PRN (17:45)
[2019-06-20] MEDS ORDERED: NITROGLYCERIN 0.4 MG SL TAB SL PRN (17:45)
[2019-06-20] MEDS ORDERED: DEXTROSE (50%) 50ML SYRG IV PRN (17:45)
[2019-06-20] MEDS: CHOLECALCIFEROL (VITD3) 1,000IU=25mCg TAB PO SCH (18:15)
[2019-06-20] MEDS: ENOXAPARIN SOD 40 MG/0.4 ML SYRINGE SC SCH (18:15)
[2019-06-20 19:00] VITALS: BP 140/91
--- NOTE | 2019-06-20 19:00 | NUR ---
ARRIVAL NOTE: RECIEVED REPORT FROM [facility]. PATIENT BROUGHT UP BY WHEELCHAIR. PATIENT IS ALERT AND ORIENTED X4. ORIENTED TO [facility] ENVIRONMENT. PATIENT IS SOB ON 3L NC. DENIES OXYGEN USE AT HOME. PATIENT HAS DRIED OPEN WOUND TO LEFT FOOT. STATES IT IS FROM A SURGERY HE HAD IN 2017. PATIENT ALSO HAS AN AREA ON RIGHT LOWER ABDOMEN REDDENED AND WARM TO TOUCH. PATIENT DENIES ANY PAIN AT THIS TIME. PATIENT UPDATED ON POC. INSTRUCTED TO USE URINAL TO COLLECT URINE SAMPLE. BED IN LOWEST LOCKED POSITION WITH CALL LIGHT WITHIN REACH.
[2019-06-20 20:00] VITALS: BP 137/93
[2019-06-20] MEDS: InsuLIN REG 1unit/0.01ml Soln (100units/ml) SC SCH (22:00)
[2019-06-20] MEDS: ALBUTEROL SULF HFA 90MCG INH 200DOSE IN SCH (22:16)
[2019-06-20] MEDS: ACCU-CHEK COMFORT CURVE STRIP VI SCH (22:17)
--- NOTE | 2019-06-20 22:37 | NUR ---
RT NOTE: MDI ADMINISTERED BY RN.
[2019-06-21 00:18] VITALS: BP 140/91
[2019-06-21 04:27] LABS: Urine Bacteria NONE SEEN /hpf (None Seen); Urine Blood Negative /uL (Negative); Urine Specific Gravity 1.009 (1.001-1.035); Urine WBC <1 /hpf (0 - 3)
--- NOTE | 2019-06-21 04:39 | NUR ---
REGARDING PAIN MEDICATION: SRI WADDELL REGARDING PATIENT COMPLAINTS OF PAIN 8/10 IN JOINTS. PATIENT REPORTS HISTORY OF ARTHRITIS AND REPORTS TAKING GABAPENTIN 300MG P.O. BID AND NORCO 7.5/325MG TID.
[2019-06-21] MEDS: ACCU-CHEK COMFORT CURVE STRIP VI SCH ×4 (05:51→21:37)
[2019-06-21] MEDS: ALBUTEROL SULF HFA 90MCG INH 200DOSE IN SCH ×3 (05:51→22:38)
[2019-06-21] MEDS: InsuLIN REG 1unit/0.01ml Soln (100units/ml) SC SCH ×4 (05:51→21:37)
--- NOTE | 2019-06-21 05:51 | NUR ---
Respiratory note: MDI ADMINISTERED BY RN, HR 73, RR 18, SPO2 95% ON 3L.
[2019-06-21 06:11] LABS: Basophils # (auto) 0.1 10 ^3/uL (0-0.2); Basophils % (auto) 0.9 % (0.0-2.0); Eosinophils # (auto) 0.4 10 ^3/uL (0-0.8); Eosinophils % (auto) 3.9 % (0.0-7.0); Hematocrit 47.2 % (41.0-53.0); Hemoglobin 16.3 g/dL (13.5-17.5); Lymphocytes # (auto) 2.8 10 ^3/uL (0.4-5.4); Mean Corpuscular Hemoglobin 32.7 pg (28.0-32.0); Mean Corpuscular Hgb Conc. 34.5 g/dL (32.0-36.0); Mean Corpuscular Volume 94.8 fL (80.0-100.0); Monocytes # (auto) 0.9 10 ^3/uL (0-1.3); Monocytes % (auto) 8.9 % (0.0-12.0); Neutrophils # (auto) 6.2 10 ^3/uL (1.6-8.6); Neutrophils % (auto) 59.3 % (37.0-80.0); Nucleated Red Blood Cells % 0.1 %; Platelet Count (auto) 218 10^3/uL (140-450); Red Blood Cells 4.97 10^6/uL (4.5-5.90); Red Cell Distribution Width 14.2 % (11.8-14.3); White Blood Cell 10.5 10^3/uL (4.4-10.8)
[2019-06-21 06:34] LABS: Albumin 2.9 g/dL (3.4-5.0); Calcium 8.4 mg/dL (8.5-10.1); Potassium 4.1 mmol/L (3.5-5.1)
[2019-06-21 06:38] LABS: BUN/Creatinine Ratio 17.7; Bilirubin, Total 0.4 mg/dL (0.2-1.0); Total Protein 7.3 g/dL (6.4-8.2)
[2019-06-21] MEDS ORDERED: GABA300C PO (07:24)
--- NOTE | 2019-06-21 07:30 | NUR ---
Opening Shift Note Assumed care of patient, awake and alert. No S/S of distress/SOB or pain. Bed in lowest and locked position with side rails up x2 and call light in reach. Instructed on POC and to call for assist PRN, will continue to monitor for changes Q1hr and PRN.
[2019-06-21 08:00] VITALS: BP 129/83
[2019-06-21] MEDS: cefTRIAXone 1GM/50ML D5W 50 ML IV SCH (08:01)
[2019-06-21] MEDS: CHOLECALCIFEROL (VITD3) 1,000IU=25mCg TAB PO SCH (09:30)
[2019-06-21] MEDS: AZITHROMYCIN 250 MG TAB PO SCH (09:30)
[2019-06-21] MEDS ORDERED: ASCORBIC ACID 1,000 MG TAB PO SCH (10:00)
[2019-06-21] MEDS ORDERED: ZINC SULFATE 220mg CAP or TAB PO SCH (10:00)
[2019-06-21] MEDS ORDERED: AZITHROMYCIN 500MG/ 250ML 250 ML IV SCH (10:00)
[2019-06-21 12:00] VITALS: BP 141/94
--- NOTE | 2019-06-21 12:29 | NUR ---
REPORT GIVEN TO RECEIVING RNKARMEN.
--- NOTE | 2019-06-21 12:57 | NUR ---
PATIENT TRANSFERRED TO [facility] VIA WHEEL CHAIR WITH ALL PERSONAL BELONGINGS AND ASSISTED BY STAFF. NO S/S OF DISTRESS OR SOB AT THIS TIME.
--- NOTE | 2019-06-21 12:57 | NUR ---
Transfer from [facility] Received. SBAR received from [facility]. Patient arrived, no s/s of distress, patient is A & O x 4, ambulatory. Patient is on Room air a this time no SOB noted. Patient oriented to room and [facility] and visiting policy at this time. Patient is on Tele box 2, SR at 75. 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 POC discussed with patient. Will continue to monitor Q1h and PRN. Vital signs upon arrival. BP 128/86, HR 71, RR 17, O2 97%, T 98.2.
[2019-06-21 13:00] VITALS: BP 128/86
--- NOTE | 2019-06-21 13:50 | NUR ---
Patient placed on TELE #70, sent back tele #2. Called TELE room.
--- NOTE | 2019-06-21 14:25 | NUR ---
Respiratory note: SCHEDULED MDI NOT GIVEN. HAVING AN ECHO DONE AT THIS TIME. NO DISTRESS NOTED.
--- NOTE | 2019-06-21 15:10 | NUR ---
Nutrition Assessment Notes Please refer to link for full assessment notes. Est Energy needs: 7111-3661 kcals (22-25 kcal/kgIBW) Est Protein needs: 104-138 gms/day (1.2-1.6 gm/kgIBW) Will continue to monitor and reassess prn. Addendum: 06/21/19 at [address] Amended: Links added. Addendum: 06/21/19 at [address] PLEASE NOTE ADDITIONAL RECOMMENDATIONS: Consider a daily MVI with 500mg Vit C BID
[2019-06-21] MEDS ORDERED: HYDR-392 PO (15:24)
[2019-06-21] MEDS ORDERED: GABA100C9 PO (15:25)
--- NOTE | 2019-06-21 15:48 | NUR ---
WOUND CARE NOTE: Wound care in to see patient per wound care request regarding " Lt foot wound s/p surgery 2017". Bedside nurse took photograph of patient's wounds upon admission for reference. Patient is 69 years old male with admitting diagnosis of Acute Resp Failure. Patient with history of PE and DM. Patient is resting in bed in Rm. 278B. Patient is awake, alert and oriented. Patient is in no stated pain at this time. Patient is ambulatory self turning and repositioning. His Jabari score is 20. Skin/wound assessment done with the assistance of patient's nurse, [facility]. 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 Distal Rt great toe at dorsal and plantar aspect has small dry, scabbed DFU, no drainage or odor noted; cleansed with Betadine and left open to air. 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 Medial aspect of L foot has 0.8x5x0.5 cm open, dark, calloused DFU. Wound is dark red/black hyperkeratotic skin, no drainage or odor noted. Patient seen by ladle mechanic on previous admission for the same issue and recommended WTD Daily dressing with Betadine gauze and to follow up with him. Patient reported that he can not be seen at [facility] due to CoVid. Cleansed patient's Lt medial foot wound with Betadine, patted dry with gauze, applied Betadine wet gauze to open calloused wound , covered with layer of 4x4's gauze, wrapped with Kerlix and secured with tape. 1.5x2cm closed red lesion noted on patient's Rt abdomen, no drainage/odor noted, left open to air. Patient is not aware how he got the abdominal lesion, he said he just noticed it. No pressure injury noted. Patient tolerated well. RECOMMENDATION: Nursing to continue with Daily/PRN cleaning of R toe scabbed wound with Betadine and Dressing change to Lt medial foot wound per MD order, Dietary consult for wound,Podiatry consult, continue monitoring by wound care while patient is hospitalized. Addendum: 06/21/19 at 1734 by Lorna Hodge RN Amended: Links added.
[2019-06-21 17:00] VITALS: BP 127/81
--- NOTE | 2019-06-21 17:03 | NUR ---
Dr. Zavala at bedside Patient stated "I am feeling a little better, but I am still weak." Informed Dr. Zavala regarding pharmacy request to DC Covid 19 medications, she agreed that she will. Orders received, read back and verified regarding patient pain medication. Will medicate per orders.
[2019-06-21] MEDS: HYDROcodone-ACET 7.5/325MG TAB PO PRN (17:24)
[2019-06-21] MEDS: ENOXAPARIN SOD 40 MG/0.4 ML SYRINGE SC SCH (17:24)
--- NOTE | 2019-06-21 18:50 | NUR ---
Spoke to nursing support worker regarding US results Meri from Radiology informed this RN of US result, will page on-call hospitalist regarding result.
--- NOTE | 2019-06-21 18:54 | NUR ---
Spoke to Tanner Tate, Hospitalist Informed Dr. Tate regarding US result, orders received, read back and verified. Will medicate per orders.
--- NOTE | 2019-06-21 19:30 | NUR ---
Opening Shift Note Assumed care of patient, awake and alert. No S/S of distress/SOB or pain. Cooperative to care. Instructed on POC and to call for assist PRN, patient verbalized understanding. Safety precaution in place, call light within reach, will continue to monitor for changes Q1hr and PRN.
[2019-06-21 21:48] VITALS: BP 128/71
[2019-06-21] MEDS ORDERED: ENOXAPARIN SOD 60 MG/0.6 ML SYRINGE SC ONE (22:00)
--- NOTE | 2019-06-21 22:38 | NUR ---
Respiratory note: ALBUTEROL GIVEN VIA MDI 180 MCG (2 PUFFS), TOLERATED WELL. PT IS CURRENTLY ON ROOM AIR: HR 63, RR 16, SPO2 93% PRIOR TO TREATMENT. WILL CONTINUE TO MONITOR.
[2019-06-22 04:46] VITALS: BP 136/75
[2019-06-22] MEDS: HYDROcodone-ACET 7.5/325MG TAB PO PRN ×2 (05:05→20:18)
[2019-06-22] MEDS: ALBUTEROL SULF HFA 90MCG INH 200DOSE IN SCH ×3 (06:34→22:26)
[2019-06-22] MEDS: InsuLIN REG 1unit/0.01ml Soln (100units/ml) SC SCH ×4 (06:34→21:58)
[2019-06-22] MEDS: ACCU-CHEK COMFORT CURVE STRIP VI SCH ×4 (06:34→21:57)
--- NOTE | 2019-06-22 06:34 | NUR ---
Respiratory note: Breathing tx administered via MDI with spacer, pt tolerated well, no adverse reactions noted. HR 62, RR 14, SPO2 96% on room air. Pt denies any SOB at this time. No s/s of respiratory distress noted.
[2019-06-22 08:55] VITALS: BP 116/71
[2019-06-22] MEDS: cefTRIAXone 1GM/50ML D5W 50 ML IV SCH (09:03)
[2019-06-22] MEDS: AZITHROMYCIN 250 MG TAB PO SCH (09:08)
[2019-06-22] MEDS: CHOLECALCIFEROL (VITD3) 1,000IU=25mCg TAB PO SCH (09:08)
[2019-06-22] MEDS ORDERED: ENOXAPARIN SOD 100 MG/1 ML SYRINGE SC SCH (10:00)
--- NOTE | 2019-06-22 12:12 | NUR ---
Doctor Zavala at bedside.
[2019-06-22 13:00] VITALS: BP 129/76
--- NOTE | 2019-06-22 15:13 | NUR ---
Respiratory note: Breathing tx administered via MDI with spacer, pt tolerated well, no adverse reactions noted. HR 67, RR 14, SPO2 97% on room air. Pt denies SOB. No s/s of respiratory distress noted. RN aware.
[2019-06-22 17:00] VITALS: BP 128/58
[2019-06-22 22:00] VITALS: BP 137/74
[2019-06-22] MEDS ORDERED: APIXABAN 5 MG TAB PO SCH (22:00)
--- NOTE | 2019-06-23 03:30 | NUR ---
Assumed care. Awake watching TV. Tele monitor on over bed table. Refusing to wear at this time. Lung sounds crackles in the bases. Verbally appropriate and agreeable, asking for rest from tele monitoring. Denies any discomfort.
--- NOTE | 2019-06-23 03:49 | NUR ---
CARE ENDORSED TO HARJIT Coy
[2019-06-23 05:00] VITALS: BP 121/71
[2019-06-23] MEDS: ACCU-CHEK COMFORT CURVE STRIP VI SCH (07:00)
[2019-06-23] MEDS: InsuLIN REG 1unit/0.01ml Soln (100units/ml) SC SCH (07:00)
[2019-06-23 07:53] LABS: Basophils # (auto) 0.1 10 ^3/uL (0-0.2); Basophils % (auto) 1.3 % (0.0-2.0); Eosinophils # (auto) 0.3 10 ^3/uL (0-0.8); Eosinophils % (auto) 3.4 % (0.0-7.0); Hematocrit 46.7 % (41.0-53.0); Lymphocytes # (auto) 2.3 10 ^3/uL (0.4-5.4); Lymphocytes % (auto) 23.3 % (10.0-50.0); Mean Corpuscular Hemoglobin 32.3 pg (28.0-32.0); Mean Corpuscular Hgb Conc. 34.2 g/dL (32.0-36.0); Mean Corpuscular Volume 94.3 fL (80.0-100.0); Monocytes # (auto) 0.9 10 ^3/uL (0-1.3); Monocytes % (auto) 9.7 % (0.0-12.0); Neutrophils # (auto) 6.1 10 ^3/uL (1.6-8.6); Neutrophils % (auto) 62.3 % (37.0-80.0); Platelet Count (auto) 210 10^3/uL (140-450); Red Blood Cells 4.95 10^6/uL (4.5-5.90); Red Cell Distribution Width 13.8 % (11.8-14.3); White Blood Cell 9.8 10^3/uL (4.4-10.8)
--- NOTE | 2019-06-23 08:04 | NUR ---
LEAVES AMA. COMPLAINTS RE FOOD SERVED. STATES THAT HE HAS LEFT MESSAGES WITH DIETARY EXPLAINING HIS REQUIREMENTS FOR DIET CONTROLLED DIABETES. REPORTS THAT MEALS ARE NOT SUITABLE. GIVES DETAILED EXAMPLE OF LAST MEAL SERVED, PASTA BREAD WITHOUT ENOUGH MEAT WITH IT. C/O SUGAR ON HIS BREAKFAST TRAY. GOES INTO DETAIL ABOUT ITEMS ON HIS MEAL TRAYS. STATES HE CHOOSES TO LEAVE NOW SO HE CAN CONTROL HIS DIET AT HOME. HE STATES SYMPTOMS HE PRESENTED WITH HAVE RESOLVED. FOLLOWS WITH HE CAME TO SEE IF HE HAD COVID19. PT IS NON CONFRONTATIONAL. PLEASANT AND INSISTENT. CALLS FROM HIS CELL PHONE FOR RIDE TO PICK HIM UP. SIGNS AMA FORM. IV REMOVED CANNULA INTACT DSG APPLIED. ID BANDS REMOVED. TELE BOX REMOVED. STATES HE DID NOT BRING ANY MEDICATIONS IN WITH HIM. WALKS OUT WITH HIS BELONGINGS.
[2019-06-23 08:17] LABS: Calcium 8.2 mg/dL (8.5-10.1)
[2019-06-23 08:19] LABS: BUN/Creatinine Ratio 16.2
[2019-06-23] MEDS: ALBUTEROL SULF HFA 90MCG INH 200DOSE IN SCH (08:26)
== END 2019-06-23 08:05 | disposition left against medical advice (07) | DRG 193 ==
LOC: ER 15:14 → EDBD 15:14 → TELE-EAST 15:15 → TELE-WESTW 06-21 12:57
PROVIDERS: ADMIT Nurse Practitioner Acute Care; ATTEND Internal Medicine
DX: J18.9 Pneumonia, unspecified organism (principal); J96.01 Acute respiratory failure with hypoxia; I50.33 Acute on chronic diastolic (congestive) heart failure; J44.1 Chronic obstructive pulmonary disease with (acute) exacerbation; K50.90 Crohn's disease, unspecified, without complications; J44.0 Chronic obstructive pulmonary disease with (acute) lower respiratory infection; J98.11 Atelectasis; I82.511 Chronic embolism and thrombosis of right femoral vein; I82.531 Chronic embolism and thrombosis of right popliteal vein; C64.9 Malignant neoplasm of unspecified kidney, except renal pelvis; E66.9 Obesity, unspecified; N18.3 Chronic kidney disease, stage 3 (moderate); E88.09 Other disorders of plasma-protein metabolism, not elsewhere classified; E11.621 Type 2 diabetes mellitus with foot ulcer; L97.519 Non-pressure chronic ulcer of other part of right foot with unspecified severity; L97.529 Non-pressure chronic ulcer of other part of left foot with unspecified severity; Z03.818 Encounter for observation for suspected exposure to other biological agents ruled out; Z53.29 Procedure and treatment not carried out because of patient's decision for other reasons; F17.200 Nicotine dependence, unspecified, uncomplicated; E11.51 Type 2 diabetes mellitus with diabetic peripheral angiopathy without gangrene; E11.22 Type 2 diabetes mellitus with diabetic chronic kidney disease; E11.622 Type 2 diabetes mellitus with other skin ulcer; Z79.84 Long term (current) use of oral hypoglycemic drugs; Z80.3 Family history of malignant neoplasm of breast; Z85.528 Personal history of other malignant neoplasm of kidney; Z90.5 Acquired absence of kidney; Z68.30 Body mass index [BMI] 30.0-30.9, adult
CPT/HCPCS: 36415; 36600; 71045; 80048; 80053; 81001; 82728; 82805; 82962; 83036; 83605; 83615; 83735; 83880; 84443; 84484; 85025; 85379; 86141; 87040; 87070; 87804; 87880; 93005; 93306; 93970; 94640; 96365; 96366; 96368; 96372; 96375; 99291; G0378; J0696; J1815